=== PATIENT | male | born 1940 | race Caucasian/White ===

== ENCOUNTER 2023-05-06 08:24 | Day surgery (SDC) | payer OTHER, BC ==
[2023-04-29 16:18] VITALS: BMI 19.3
[2023-05-06 09:42] VITALS: TEMP 98
[2023-05-06 09:58] VITALS: RESP 18
[2023-05-06 10:04] VITALS: BP 110/68; PULSE 62
== END 2023-05-06 10:29 | disposition home or self-care (01) ==
LOC: FASU-ENDO 08:24
PROVIDERS: ATTEND Internal Medicine Gastroenterology
PROC: 0DBC8ZX Excision of Ileocecal Valve, Via Natural or Artificial Opening Endoscopic, Diagnostic (ICD-10-PCS; 2023-05-06)
PROC: 0DBK8ZX Excision of Ascending Colon, Via Natural or Artificial Opening Endoscopic, Diagnostic (ICD-10-PCS; principal; 2023-05-06 09:24)
DX: Z12.11 Encounter for screening for malignant neoplasm of colon (principal); K63.5 Polyp of colon; K57.30 Diverticulosis of large intestine without perforation or abscess without bleeding
CPT/HCPCS: 82962; 88305-TC